=== PATIENT | male | born 1950 | race Hispanic/Latino ===

== ENCOUNTER 2024-03-25 12:51 | Outpatient (CLI) | payer OTHER | END 2024-03-25 12:52 | disposition home or self-care (01) | LOC: CT 12:51 | PROVIDERS: ATTEND Family Medicine | DX: I62.03 Nontraumatic chronic subdural hemorrhage (principal) | CPT/HCPCS: 70450 ==

== ENCOUNTER 2024-04-23 12:35 | Outpatient (CLI) | payer OTHER | END 2024-04-23 12:36 | disposition home or self-care (01) | LOC: CT 12:35 | PROVIDERS: ATTEND Surgery | DX: I62.03 Nontraumatic chronic subdural hemorrhage (principal) | CPT/HCPCS: 70450 ==